=== PATIENT | female | born 1970 | race Caucasian/White ===

== ENCOUNTER 2023-01-06 14:21 | Emergency (ER) | payer SELFPAY ==
[~2023-01-06] VITALS: Ht 165.1 cm; Wt 117.0 kg
[2023-01-06 14:38] VITALS: BP 139/73
--- NOTE | 2023-01-06 14:43 | NUR ---
pt ambulaotyr to eduard dennis steady gait.
[2023-01-06] MEDS ORDERED: KETOROLAC 30 MG/ML VIAL IM ONE (15:45)
--- NOTE | 2023-01-06 15:56 | NUR ---
sling applied to r arm. + cms
[2023-01-06] MEDS ORDERED: IBUP-2213 PO (17:29)
[2023-01-06] MEDS ORDERED: LID5T TP (17:29)
[2023-01-06 17:45] VITALS: BP 135/76
== END 2023-01-06 17:45 | disposition home or self-care (01) ==
LOC: MED 14:21
DX: S46.811A Strain of other muscles, fascia and tendons at shoulder and upper arm level, right arm, initial encounter (principal); W18.30XA Fall on same level, unspecified, initial encounter; Y93.89 Activity, other specified; Y92.89 Other specified places as the place of occurrence of the external cause; Y99.8 Other external cause status
CPT/HCPCS: 73030; 73060; 96372; 99284; J1885

== ENCOUNTER 2023-02-07 16:08 | Emergency (ER) | payer SELFPAY ==
[~2023-02-07] VITALS: Ht 165.1 cm; Wt 117.9 kg
[~2023-02-07 16:08] MED LIST: IBUP-2213 PO; LID5T TP
[2023-02-07 16:34] VITALS: BP 148/83
--- NOTE | 2023-02-07 18:30 | NUR ---
TO ER BED 12
[2023-02-07 18:51] VITALS: BP 145/81
--- NOTE | 2023-02-07 18:51 | NUR ---
Patient discharged with v/s stable. Written and verbal after care instructions given and explained. Patient verbalized understanding. Ambulatory with walkig cane with steady gait. All questions addressed prior to discharge. Advised to follow up with PMD.
== END 2023-02-07 18:51 | disposition home or self-care (01) ==
LOC: MED 16:08
DX: M25.561 Pain in right knee (principal); G89.29 Other chronic pain; R03.0 Elevated blood-pressure reading, without diagnosis of hypertension; Z79.899 Other long term (current) drug therapy
CPT/HCPCS: 73562; 99283